=== PATIENT | male | born 1940 | race Caucasian/White ===

== ENCOUNTER 2018-07-11 15:02 | Inpatient (IN) | payer MEDICARE, OTHER ==
[2018-07-11] MEDS: Albuterol/Ipratropium 3.0-0.5 MG/3 ML Neb Soln NEB SCH ×2 (15:59→22:12)
[2018-07-11] MEDS ORDERED: Levofloxacin/Dextrose 5%-Water 750 MG in Premix Bag 1 BAG IV SCH (16:00)
[2018-07-11] MEDS: methylPREDNISolone Sodium Succinate 125 MG/2 ML SDV IVPUSH SCH ×2 (16:03→23:33)
[2018-07-11] MEDS: Sodium Chloride 0.9% 10 ML Syringe FLUSH PRN ×3 (16:05→23:34)
[2018-07-11] MEDS: Enoxaparin 40 MG/0.4 ML Syringe SUBCUT SCH (17:13)
[2018-07-11] MEDS: Insulin Lispro 100 Unit/ML 3 ML KwikPen SUBCUT SCH (19:36)
[2018-07-11] MEDS ORDERED: Insulin Lispro 100 Unit/ML 3 ML KwikPen SUBCUT SCH (22:00)
[2018-07-11] MEDS ORDERED: Insulin Lispro 100 Unit/ML 3 ML KwikPen SUBCUT ONE (22:18)
[2018-07-12] MEDS: Albuterol/Ipratropium 3.0-0.5 MG/3 ML Neb Soln NEB SCH ×5 (03:38→20:45)
[2018-07-12] MEDS: Acetaminophen 325 MG Tab PO PRN ×2 (03:44→18:47)
[2018-07-12] MEDS: methylPREDNISolone Sodium Succinate 125 MG/2 ML SDV IVPUSH SCH ×2 (09:03→16:30)
[2018-07-12] MEDS: Sodium Chloride 0.9% 10 ML Syringe FLUSH PRN ×4 (09:08→21:51)
[2018-07-12] MEDS: Insulin Lispro 100 Unit/ML 3 ML KwikPen SUBCUT SCH ×3 (09:09→18:49)
--- NOTE | 2018-07-12 09:40 | PCM.HP ---
H&P History of Present Illness - General Date of Service: 07/12/18 Admit Problem/Dx: Admission Diagnosis/Problem Admission Diagnosis/Problem Dyspnea Source of Information: Patient History Limitations: Reports: No Limitations - History of Present Illness Initial Comments - Free Text/Narative: Mr. Jama is an 78-year-old male that was admitted yesterday with persistent cough, wheezing and shortness of breath. He describes yellow sputum with coughing. The symptoms started insidiously 2 weeks ago, and he was seen as an outpatient;treated with azithromycin and prednisone with no relief. Mr. Jama has a history of type 2 diabetes, obesity, coronary disease and CKD that previously stable. He's baseline creatinine is about 1.8. He denied any chest pain. He endorsed leg swelling, that left worse than the right, along with orthopnea. - Related Data Allergies/Adverse Reactions: Allergies Allergy/AdvReac Type Severity Reaction Status Date / Time No Known Allergies Allergy Verified 07/11/18 15:29 Home Medications: Home Meds Albuterol Sulfate [Albuterol Sulfate Hfa] 8.5 gm IH PRN 07/11/18 [History] Ascorbic Acid 1 tab PO DAILY 07/11/18 [History] Aspirin [Ecotrin] 1 tab PO DAILY 07/11/18 [History] Azithromycin [Zithromax] 250 mg PO DAILY 07/11/18 [History] Furosemide [Lasix] 20 mg PO MOWEFR 07/11/18 [History] Insulin Detemir [Levemir] 85 unit SUBCUT BEDTIME 07/11/18 [History] Insulin Lispro [HumaLOG] 40 unit SQ ACDINNER 07/11/18 [History] Losartan/Hydrochlorothiazide [Hyzaar 50-12.5 Tablet] 12.5 - 50 mg PO DAILY 07/11 [History] Metoprolol Tartrate [Lopressor] 50 mg PO BID 07/11/18 [History] Multivitamins/Min/Ca/FA/Iron [Thera-M] 1 tab PO DAILY 07/11/18 [History] Cylinder-3 Fatty Acids/Fish Oil [Fish Oil 1,200 mg Softgel] 1,200 mg PO BID [History] Omeprazole 20 mg PO DAILY 07/11/18 [History] Rosuvastatin [Crestor] 20 mg PO DAILY 07/11/18 [History] predniSONE [Prednisone] 20 mg PO BID 07/11/18 [History] Insulin Lispro 25 unit SQ ACBREAKFAST 07/12/18 [History] Insulin Lispro 30 unit SQ ACLUNCH 07/12/18 [History] Past Medical History Cardiovascular History: Reports: Bypass Other Cardiovascular History: Cabg x4 Respiratory History: Reports: Bronchitis, Recurrent Gastrointestinal History: Reports: Diverticulosis Endocrine/Metabolic History: Reports: IDDM - Past Surgical History Cardiovascular Surgical History: Reports: Coronary Artery Bypass GI Surgical History: Reports: Cholecystectomy, Small Bowel Social & Family History - Family History Family Medical History: Noncontributory - Tobacco Use Smoking Status *Q: Former Smoker Used Tobacco, but Quit: Yes Month/Year Tobacco Last Used: 1969 - Caffeine Use Caffeine Use: Reports: Coffee - Alcohol Use Days Per Week of Alcohol Use: 0 - Recreational Drug Use Recreational Drug Use: No H&P Review of Systems - Review of Systems: Review Of Systems: ROS reveals no pertinent complaints other than HPI. Exam - Exam Exam: See Below - Vital Signs Vital Signs: Last Vital Signs Temp 97.8 F 07/12/18 04:00 Pulse 62 07/12/18 04:00 Resp 20 07/12/18 04:00 BP 152/68 H 07/12/18 04:00 Pulse Ox 97 07/12/18 04:00 Weight: 118.898 kg - Exam General: Moderate Distress HEENT: PERRLA, Hearing Intact, Mucosa Moist & [place], Nares Patent, Normal Nasal Septum, Posterior Pharynx Clear, Conjunctiva Clear, EOMI, EACs Clear, TMs Clear Neck: Supple, Trachea Midline, 2 Lungs: Decreased Breath Sounds, Crackles, Rales, Rhonchi, Wheezing Cardiovascular: Regular Rate, Regular Rhythm GI/Abdominal Exam: Normal Bowel Sounds, Soft, Non-Tender, No Organomegaly, No Distention, No Abnormal Bruit, No Mass, Pelvis Stable (Male) Exam: Deferred Rectal (Males) Exam: Deferred Back Exam: Normal Inspection, Full Range of Motion, NT Extremities: Pedal Edema Skin: Warm, Dry, Intact Neurological: Cranial Nerves Intact, Reflexes Equal Bilateral Neuro Extensive - Mental Status: Alert, Oriented x3, Normal Mood/Affect, Normal Cognition Neuro Extensive - Motor, Sensory, Reflexes: CN II-XII Intact, Normal Gait, Normal Reflexes Psychiatric: Alert, Normal Affect, Normal Mood - Patient Data Lab Results Last 24 hrs: Laboratory Results - last 24 hr 07/11/18 07/11/18 07/11/18 Range/Units 15:25 15:25 15:25 WBC 19.3 H (4.5-12.0) X10-3/uL RBC 4.39 (4.30-5.75) x10(6)uL Hgb 13.6 (13.5-17.8) g/dL Hct 40.8 (30.0-51.3) % MCV 92.9 (80-96) fL MCH 31.0 (27.7-33.6) pg MCHC 33.4 (32.2-35.4) g/dL RDW 12.2 (11.5-15.5) % Plt Count 329 (125-369) X10(3)uL MPV 8.6 (7.4-10.4) fL Add Manual Diff Yes Neutrophils % (Manual) 86 H (46-82) % Band Neutrophils % (0-6) % Lymphocytes % (Manual) 7 L (13-37) % Monocytes % (Manual) 7 (4-12) % Sodium (135-145) mmol/L Potassium (3.5-5.3) mmol/L Chloride (100-110) mmol/L Carbon Dioxide (21-32) mmol/L BUN (7-18) mg/dL Creatinine (0.70-1.30) mg/dL Est Cr Clr Drug Dosing Estimated GFR (MDRD) (>60) BUN/Creatinine Ratio (9-20) Glucose (80-116) mg/dL POC Glucose (80-116) mg/dL Lactic Acid 2.1 (0.4-2.2) mmol/L Calcium (8.6-10.2) mg/dL Total Bilirubin (0.1-1.3) mg/dL AST (5-25) IU/L ALT (12-36) U/L Alkaline Phosphatase (56-112) IU/L Troponin I (<0.017-0.056) ng/mL C-Reactive Protein 6.0 H* (0.5-0.9) mg/dL NT-Pro-B Natriuret Pep (<=450) pg/mL Total Protein (6.0-8.0) g/dL Albumin (3.2-4.6) g/dL Globulin g/dL Albumin/Globulin Ratio 07/11/18 07/11/18 07/11/18 Range/Units 15:25 15:25 21:44 WBC (4.5-12.0) X10-3/uL RBC (4.30-5.75) x10(6)uL Hgb (13.5-17.8) g/dL Hct (30.0-51.3) % MCV (80-96) fL MCH (27.7-33.6) pg MCHC (32.2-35.4) g/dL RDW (11.5-15.5) % Plt Count (125-369) X10(3)uL MPV (7.4-10.4) fL Add Manual Diff Neutrophils % (Manual) (46-82) % Band Neutrophils % (0-6) % Lymphocytes % (Manual) (13-37) % Monocytes % (Manual) (4-12) % Sodium 142 (135-145) mmol/L Potassium 4.0 (3.5-5.3) mmol/L Chloride 102 (100-110) mmol/L Carbon Dioxide 28 (21-32) mmol/L BUN 48 H (7-18) mg/dL Creatinine 2.0 H* (0.70-1.30) mg/dL Est Cr Clr Drug Dosing TNP Estimated GFR (MDRD) 32 L (>60) BUN/Creatinine Ratio 24.0 H (9-20) Glucose 57 L (80-116) mg/dL POC Glucose 373 H (80-116) mg/dL Lactic Acid (0.4-2.2) mmol/L Calcium 9.1 (8.6-10.2) mg/dL Total Bilirubin 0.3 (0.1-1.3) mg/dL AST 26 H (5-25) IU/L ALT 29 (12-36) U/L Alkaline Phosphatase 81 (56-112) IU/L Troponin I < 0.017 L (<0.017-0.056) ng/mL C-Reactive Protein (0.5-0.9) mg/dL NT-Pro-B Natriuret Pep 856 H (<=450) pg/mL Total Protein 7.0 (6.0-8.0) g/dL Albumin 2.9 L (3.2-4.6) g/dL Globulin 4.1 g/dL Albumin/Globulin Ratio 0.7 07/12/18 07/12/18 07/12/18 Range/Units 06:08 06:35 06:35 WBC 13.8 H (4.5-12.0) X10-3/uL RBC 3.91 L (4.30-5.75) x10(6)uL Hgb 12.2 L (13.5-17.8) g/dL Hct 36.1 (30.0-51.3) % MCV 92.4 (80-96) fL MCH 31.2 (27.7-33.6) pg MCHC 33.8 (32.2-35.4) g/dL RDW 12.2 (11.5-15.5) % Plt Count 252 (125-369) X10(3)uL MPV 8.7 (7.4-10.4) fL Add Manual Diff Yes Neutrophils % (Manual) 89 H (46-82) % Band Neutrophils % 1 (0-6) % Lymphocytes % (Manual) 6 L (13-37) % Monocytes % (Manual) 4 (4-12) % Sodium 136 (135-145) mmol/L Potassium 4.9 (3.5-5.3) mmol/L Chloride 98 L (100-110) mmol/L Carbon Dioxide 30 (21-32) mmol/L BUN 48 H (7-18) mg/dL Creatinine 2.1 H* (0.70-1.30) mg/dL Est Cr Clr Drug Dosing 27.14 Estimated GFR (MDRD) 31 L (>60) BUN/Creatinine Ratio 22.9 H (9-20) Glucose 362 H D (80-116) mg/dL POC Glucose 349 H (80-116) mg/dL Lactic Acid (0.4-2.2) mmol/L Calcium 8.9 (8.6-10.2) mg/dL Total Bilirubin 0.4 (0.1-1.3) mg/dL AST 27 H (5-25) IU/L ALT 29 (12-36) U/L Alkaline Phosphatase 78 (56-112) IU/L Troponin I (<0.017-0.056) ng/mL C-Reactive Protein (0.5-0.9) mg/dL NT-Pro-B Natriuret Pep (<=450) pg/mL Total Protein 6.6 (6.0-8.0) g/dL Albumin 2.7 L (3.2-4.6) g/dL Globulin 3.9 g/dL Albumin/Globulin Ratio 0.7 Result Diagrams: 07/12/18 06:35 07/12/18 06:35 EKG INTERPRETATION Rhythm: NSR - Problem List (1) CAP (community acquired pneumonia) SNOMED Code(s): 394169878 ICD Code: J18.9 - PNEUMONIA, UNSPECIFIED ORGANISM Status: Acute Current Visit: Yes Qualifiers: Laterality: unspecified laterality Qualified Code(s): J18.9 - Pneumonia, unspecified organism (2) Obesities, morbid SNOMED Code(s): 359812322 ICD Code: E66.01 - MORBID (SEVERE) OBESITY DUE TO EXCESS CALORIES Status: Chronic Current Visit: Yes (3) Type 2 diabetes mellitus SNOMED Code(s): 45487561 ICD Code: E11.9 - TYPE 2 DIABETES MELLITUS WITHOUT COMPLICATIONS Status: Chronic Current Visit: Yes Qualifiers: Diabetes mellitus terminal clerk insulin use: with care home use (4) HTN (hypertension) SNOMED Code(s): 48854354 ICD Code: I10 - ESSENTIAL (PRIMARY) HYPERTENSION Status: Chronic Current Visit: Yes Qualifiers: Hypertension type: essential hypertension Qualified Code(s): I10 - Essential (primary) hypertension (5) HLD (hyperlipidemia) SNOMED Code(s): 13154484 ICD Code: E78.5 - HYPERLIPIDEMIA, UNSPECIFIED Status: Chronic Current Visit: Yes (6) CAD (coronary artery disease) SNOMED Code(s): 51197505 ICD Code: I25.10 - ATHSCL HEART DISEASE OF [place] CORONARY ARTERY W/O ANG PCTRS Status: Chronic Current Visit: Yes Qualifiers: [place] vs. transplanted heart: [place] heart (7) CKD (chronic kidney disease) SNOMED Code(s): 194897937 ICD Code: N18.9 - CHRONIC KIDNEY DISEASE, UNSPECIFIED Status: Acute Current Visit: Yes Qualifiers: Chronic kidney disease stage: stage 3 (moderate) Qualified Code(s): N18.3 - Chronic kidney disease, stage 3 (moderate) Problem List Initiated/Reviewed/Updated: Yes Orders Last 24hrs: Active Orders 24 hr Category Date Time Status Patient Status [ADT] Routine ADT 07/11/18 15:03 Active Blood Glucose Check, Bedside [RC] 07,11,17 Care 07/11/18 15:03 Active Blood Glucose Check, Bedside [RC] ONETIME Care 07/11/18 21:00 Active Height and Weight [RC] 06 Care 07/11/18 15:03 Active Intake and Output [RC] 06,14,22 Care 07/11/18 15:04 Active Oxygen Therapy [RC] PRN Care 07/11/18 15:03 Active RT Aerosol Therapy [RC] ASDIRECTED Care 07/11/18 15:04 Active Up With Assistance [RC] ASDIRECTED Care 07/11/18 15:03 Active VTE/DVT Education [RC] Per Unit Routine Care 07/11/18 15:03 Active Vital Signs [RC] 08,12,16,20,00,04 Care 07/11/18 15:03 Active Chest wo Cont [CT] Routine Exams 07/11/18 15:03 Taken CULTURE BLOOD [BC] Urgent Lab 07/11/18 15:25 Received CULTURE BLOOD [BC] Urgent Lab 07/11/18 15:35 Received CULTURE SPUTUM + SMEAR [RM] Routine Lab 07/11/18 19:51 Ordered Acetaminophen [Tylenol] Med 07/11/18 15:03 Active 650 mg PO Q4H PRN Albuterol/Ipratropium [DuoNeb 3.0-0.5 MG/3 ML] Med 07/11/18 16:00 Active 3 ml NEB QIDRT Enoxaparin [Lovenox] Med 07/11/18 16:30 Active 40 mg SUBCUT Q24H Insulin Lispro [HumaLOG] Med 07/11/18 22:00 Active 7 unit SUBCUT STAT Insulin Lispro [HumaLOG] Med 07/11/18 18:00 Active See Protocol SUBCUT TIDMEALS Levofloxacin/Dextrose 5%-Water [Levaquin in D5W 750 MG/ Med 07/13/18 16:30 Active 150 ML] 150 ml IV Q48H Sodium Chloride 0.9% [Saline Flush] Med 07/11/18 15:03 Active 10 ml FLUSH ASDIRECTED PRN methylPREDNISolone Sod Succ [Solu-MEDROL] Med 07/11/18 16:00 Active 125 mg IVPUSH Q8H Blood Culture x2 Reflex Set [OM.PC] Urgent Oth 07/11/18 15:03 Ordered Peripheral IV Insertion Adult [OM.PC] Routine Oth 07/11/18 15:03 Ordered Resuscitation Status Routine Resus Stat 07/11/18 15:03 Ordered EKG 12 Lead [EK] Stat Ther 07/11/18 15:03 Ordered Medication Orders Acetaminophen (Tylenol) 650 mg PO Q4H PRN PRN Reason: Pain (Mild 1-3)/fever Last Admin: 07/12/18 03:44 Dose: 650 mg Albuterol/Ipratropium (Duoneb 3.0-0.5 Mg/3 Ml) 3 ml NEB QIDRT [facility] Last Admin: 07/12/18 08:59 Dose: Admin: 07/12/18 03:38 Dose: 3 ml Admin: 07/11/18 22:12 Dose: 3 ml Admin: 07/11/18 15:59 Dose: 3 ml Enoxaparin Sodium (Lovenox) 40 mg SUBCUT Q24H [facility] Last Admin: 07/11/18 17:13 Dose: 40 mg Levofloxacin/Dextrose (Levaquin In D5w 750 Mg/150 Ml) 150 mls @ 100 mls/hr IV Q48H [facility] Insulin Human Lispro (Humalog) 0 unit SUBCUT TIDMEALS [facility]; Protocol Last Admin: 07/12/18 09:09 Dose: 8 units Admin: 07/11/18 19:36 Dose: Not Given Insulin Human Lispro (Humalog) 7 unit SUBCUT STAT [facility] Last Admin: 07/11/18 22:33 Dose: 7 units Methylprednisolone Sodium Succinate (Solu-Medrol) 125 mg IVPUSH Q8H [facility] Last Admin: 07/12/18 09:03 Dose: 125 mg Admin: 07/11/18 23:33 Dose: 125 mg Admin: 07/11/18 16:03 Dose: 125 mg Sodium Chloride (Saline Flush) 10 ml FLUSH ASDIRECTED PRN PRN Reason: Keep Vein Open Last Admin: 07/12/18 09:08 Dose: 10 ml Admin: 07/11/18 23:34 Dose: 10 ml Admin: 07/11/18 18:35 Dose: 10 ml Admin: 07/11/18 16:05 Dose: 10 ml Assessment/Plan Comment:: He CT scan done without contrast showed bilateral pneumonia. I was unable to give contrast to rule out PE. He does have mild edema and BNP is about 800. I will continue with Levaquin 750 mg every 48 hours, Solu-Medrol, and a tight glycemic control. Supplement O2 prn.Also decided to give him Lasix twice a day for diuresis.
[2018-07-12] MEDS: Furosemide 20 MG/2 ML VIAL IVPUSH SCH ×2 (10:25→20:45)
[2018-07-12] MEDS: Enoxaparin 40 MG/0.4 ML Syringe SUBCUT SCH (16:30)
[2018-07-12] MEDS ORDERED: Insulin Lispro 100 Unit/ML 3 ML KwikPen SUBCUT SCH (18:02)
[2018-07-12] MEDS ORDERED: Insulin Regular, Human 100 Units/ML 3 ML Vial IV STA ×2 (18:26→21:30)
[2018-07-12] MEDS: Metoprolol Tartrate 50 MG Tab PO SCH (20:45)
[2018-07-12] MEDS ORDERED: INSULIN DETEMIR 85 UNIT SUBCUT SCH (21:00)
[2018-07-12] MEDS: Fish Oil/Omega-3 Fatty Acids 1 Gm Cap PO SCH ×2 (21:26→21:48)
[2018-07-13] MEDS: methylPREDNISolone Sodium Succinate 125 MG/2 ML SDV IVPUSH SCH ×2 (00:19→12:23)
[2018-07-13] MEDS: Sodium Chloride 0.9% 10 ML Syringe FLUSH PRN ×7 (00:19→20:33)
[2018-07-13] MEDS ORDERED: Insulin Lispro 100 Unit/ML 3 ML KwikPen SUBCUT STA (00:44)
[2018-07-13] MEDS: Albuterol/Ipratropium 3.0-0.5 MG/3 ML Neb Soln NEB SCH ×4 (06:24→20:29)
[2018-07-13] MEDS: Pantoprazole 40 MG Tab.CR PO SCH (06:30)
[2018-07-13] MEDS: Insulin Lispro 100 Unit/ML 3 ML KwikPen SUBCUT SCH ×3 (07:32→18:41)
[2018-07-13] MEDS ORDERED: Piperacillin/Tazobactam 2.25 GM in Sodium Chloride 0.9% 50 ML IV SCH (09:00)
[2018-07-13] MEDS ORDERED: Vancomycin 1 GM SDV ONE (09:44)
[2018-07-13] MEDS: Saccharomyces Boulardii (Probiotic) 250 MG Cap PO SCH ×2 (10:03→20:29)
[2018-07-13] MEDS: Furosemide 20 MG/2 ML VIAL IVPUSH SCH ×2 (10:04→20:29)
[2018-07-13] MEDS: Aspirin 81 MG Tab.EC PO SCH (10:04)
[2018-07-13] MEDS: predniSONE 20 MG Tab PO SCH ×2 (10:04→20:29)
[2018-07-13] MEDS: Metoprolol Tartrate 50 MG Tab PO SCH ×2 (10:04→20:29)
[2018-07-13] MEDS: Fish Oil/Omega-3 Fatty Acids 1 Gm Cap PO SCH ×2 (10:14→20:29)
[2018-07-13] MEDS: Multivitamins,Therapeutic Tab PO SCH (10:14)
[2018-07-13] MEDS: Rosuvastatin 20 MG Tab PO SCH (10:14)
[2018-07-13] MEDS: Piperacillin/Tazobactam 2.25 GM in Sodium Chloride 0.9% 50 ML IV SCH ×3 (10:39→21:50)
[2018-07-13] MEDS ORDERED: Insulin Lispro 100 Unit/ML 3 ML KwikPen SUBCUT SCH ×2 (11:30→18:45)
[2018-07-13] MEDS ORDERED: Vancomycin 2 GM in Sodium Chloride 0.9% 500 ML IV SCH (12:00)
[2018-07-13] MEDS ORDERED: Levofloxacin/Dextrose 5%-Water 150 ML IV SCH (16:30)
[2018-07-13] MEDS: Enoxaparin 40 MG/0.4 ML Syringe SUBCUT SCH (16:42)
--- NOTE | 2018-07-13 19:23 | PCM.PN ---
- General Info Date of Service: 07/13/18 Admission Dx/Problem (Free Text): He is steadily improving.Slept better. Still wheezing. Has diuresed 1 lb since yesterday.One bottle of blood cultures has grown Gram Positive Cocci - Review of Systems General: Denies: Fever HEENT: Reports: No Symptoms Pulmonary: Reports: Cough Cardiovascular: Reports: No Symptoms Gastrointestinal: Reports: No Symptoms Genitourinary: Reports: No Symptoms Musculoskeletal: Reports: No Symptoms Neurological: Reports: No Symptoms - Patient Data Vitals - Most Recent: Last Vital Signs Temp 97.6 F 07/13/18 16:00 Pulse 75 07/13/18 16:00 Resp 20 07/13/18 16:00 BP 129/67 07/13/18 16:00 Pulse Ox 94 L 07/13/18 16:00 Weight - Most Recent: 118.433 kg I&O - Last 24 Hours: Intake & Output 07/13/18 07/13/18 07/13/18 06:59 14:59 22:59 Intake Total 50 Output Total 550 1050 Balance -550 -1000 Lab Results Last 24 Hours: Laboratory Results - last 24 hr 07/12/18 07/12/18 07/12/18 Range/Units 20:40 21:15 21:15 WBC (4.5-12.0) X10-3/uL RBC (4.30-5.75) x10(6)uL Hgb (13.5-17.8) g/dL Hct (30.0-51.3) % MCV (80-96) fL MCH (27.7-33.6) pg MCHC (32.2-35.4) g/dL RDW (11.5-15.5) % Plt Count (125-369) X10(3)uL MPV (7.4-10.4) fL Add Manual Diff Neutrophils % (Manual) (46-82) % Band Neutrophils % (0-6) % Lymphocytes % (Manual) (13-37) % Monocytes % (Manual) (4-12) % Sodium (135-145) mmol/L Potassium (3.5-5.3) mmol/L Chloride (100-110) mmol/L Carbon Dioxide (21-32) mmol/L BUN (7-18) mg/dL Creatinine (0.70-1.30) mg/dL Est Cr Clr Drug Dosing mL/min Estimated GFR (MDRD) (>60) BUN/Creatinine Ratio (9-20) Glucose 494 H* D (80-116) mg/dL POC Glucose > 500 H* (80-116) mg/dL Calcium (8.6-10.2) mg/dL Magnesium 2.3 (1.8-2.5) mg/dL 07/13/18 07/13/18 07/13/18 Range/Units 00:09 04:05 06:10 WBC 17.1 H (4.5-12.0) X10-3/uL RBC 4.06 L (4.30-5.75) x10(6)uL Hgb 12.4 L (13.5-17.8) g/dL Hct 37.6 (30.0-51.3) % MCV 92.5 (80-96) fL MCH 30.6 (27.7-33.6) pg MCHC 33.1 (32.2-35.4) g/dL RDW 11.9 (11.5-15.5) % Plt Count 300 (125-369) X10(3)uL MPV 8.1 (7.4-10.4) fL Add Manual Diff Yes Neutrophils % (Manual) 94 H (46-82) % Band Neutrophils % 1 (0-6) % Lymphocytes % (Manual) 2 L (13-37) % Monocytes % (Manual) 3 L (4-12) % Sodium (135-145) mmol/L Potassium (3.5-5.3) mmol/L Chloride (100-110) mmol/L Carbon Dioxide (21-32) mmol/L BUN (7-18) mg/dL Creatinine (0.70-1.30) mg/dL Est Cr Clr Drug Dosing mL/min Estimated GFR (MDRD) (>60) BUN/Creatinine Ratio (9-20) Glucose (80-116) mg/dL POC Glucose 375 H D 251 H D (80-116) mg/dL Calcium (8.6-10.2) mg/dL Magnesium (1.8-2.5) mg/dL 07/13/18 07/13/18 07/13/18 Range/Units 06:10 11:32 11:40 WBC (4.5-12.0) X10-3/uL RBC (4.30-5.75) x10(6)uL Hgb (13.5-17.8) g/dL Hct (30.0-51.3) % MCV (80-96) fL MCH (27.7-33.6) pg MCHC (32.2-35.4) g/dL RDW (11.5-15.5) % Plt Count (125-369) X10(3)uL MPV (7.4-10.4) fL Add Manual Diff Neutrophils % (Manual) (46-82) % Band Neutrophils % (0-6) % Lymphocytes % (Manual) (13-37) % Monocytes % (Manual) (4-12) % Sodium 135 (135-145) mmol/L Potassium 5.1 (3.5-5.3) mmol/L Chloride 99 L D (100-110) mmol/L Carbon Dioxide 30 (21-32) mmol/L BUN 57 H (7-18) mg/dL Creatinine 2.0 H* (0.70-1.30) mg/dL Est Cr Clr Drug Dosing 28.50 mL/min Estimated GFR (MDRD) 32 L (>60) BUN/Creatinine Ratio 28.5 H (9-20) Glucose 301 H D 418 H* D (80-116) mg/dL POC Glucose 424 H* D (80-116) mg/dL Calcium 9.0 (8.6-10.2) mg/dL Magnesium (1.8-2.5) mg/dL Steven Results Last 24 Hours: Microbiology 07/11/18 15:35 Aerobic Blood Culture - Preliminary Blood - Venous - Lab Draw Gram Positive Cocci Anaerobic Blood Culture - Preliminary NO GROWTH AFTER 2 DAYS 07/11/18 19:51 Gram Stain - Final Sputum - Expectorated Sputum Culture - Preliminary Normal Pepper 07/11/18 15:25 Aerobic Blood Culture - Preliminary Blood - Venous NO GROWTH AFTER 2 DAYS Anaerobic Blood Culture - Preliminary NO GROWTH AFTER 2 DAYS Med Orders - Current: Current Medications Acetaminophen (Tylenol) 650 mg PO Q4H PRN PRN Reason: Pain (Mild 1-3)/fever Last Admin: 07/12/18 18:47 Dose: 650 mg Albuterol/Ipratropium (Duoneb 3.0-0.5 Mg/3 Ml) 3 ml NEB QIDRT [facility] Last Admin: 07/13/18 16:41 Dose: 3 ml Aspirin (Halfprin) 81 mg PO DAILY [facility] Last Admin: 07/13/18 10:04 Dose: 81 mg Enoxaparin Sodium (Lovenox) 40 mg SUBCUT Q24H [facility] Last Admin: 07/13/18 16:42 Dose: 40 mg Fish Oil (Fish Oil) 1 gm PO BID [facility] Last Admin: 07/13/18 10:14 Dose: 1 gm Furosemide (Lasix) 20 mg IVPUSH BID [facility] Last Admin: 07/13/18 10:04 Dose: 20 mg Levofloxacin/Dextrose (Levaquin In D5w 750 Mg/150 Ml) 150 mls @ 100 mls/hr IV Q48H [facility] Last Admin: 07/13/18 17:16 Dose: 100 mls/hr Piperacillin Sod/Tazobactam (Sod 2.25 gm/ Sodium Chloride) 50 mls @ 100 mls/hr IV Q6H [facility] Last Admin: 07/13/18 16:36 Dose: 100 mls/hr Vancomycin HCl 2 gm/ Sodium (Chloride) 500 mls @ 334.014 mls/hr IV Q36H [facility] Last Admin: 07/13/18 12:08 Dose: 334.014 mls/hr Insulin Human Lispro (Humalog) 0 unit SUBCUT TIDMEALS [facility]; Protocol Last Admin: 07/13/18 18:41 Dose: 10 units Insulin Human Lispro (Humalog) 7 unit SUBCUT STAT [facility] Last Admin: 07/11/18 22:33 Dose: 7 units Insulin Human Lispro (Humalog) 25 unit SUBCUT ACBREAKFAST [facility] Insulin Human Lispro (Humalog) 30 unit SUBCUT ACLUNCH [facility] Last Admin: 07/13/18 12:06 Dose: 30 units Insulin Human Lispro (Humalog) 40 unit SUBCUT ACDINNER [facility] Metoprolol Tartrate (Lopressor) 50 mg PO BID [facility] Last Admin: 07/13/18 10:04 Dose: 50 mg Multivitamins (Thera) 1 each PO DAILY [facility] Last Admin: 07/13/18 10:14 Dose: 1 each Non-Formulary Medication (Insulin Detemir [Levemir]) 85 unit SUBCUT BEDTIME [facility] Last Admin: 07/12/18 21:47 Dose: Not Given Pantoprazole Sodium (Protonix) 40 mg PO ACBREAKFAST [facility] Last Admin: 07/13/18 06:30 Dose: 40 mg Prednisone (Prednisone) 20 mg PO BID [facility] Last Admin: 07/13/18 10:04 Dose: 20 mg Rosuvastatin Calcium (Crestor) 20 mg PO DAILY [facility] Last Admin: 07/13/18 10:14 Dose: 20 mg Saccharomyces Boulardii (Florastor) 250 mg PO BID [facility] Last Admin: 07/13/18 10:03 Dose: 250 mg Sodium Chloride (Saline Flush) 10 ml FLUSH ASDIRECTED PRN PRN Reason: Keep Vein Open Last Admin: 07/13/18 10:09 Dose: 10 ml Discontinued Medications Levofloxacin/Dextrose 750 mg/ (Premix) 150 mls @ 100 mls/hr IV Q24H [facility] Stop: 07/11/18 19:00 Last Admin: 07/11/18 17:06 Dose: 100 mls/hr Piperacillin Sod/Tazobactam (Sod 2.25 gm/ Sodium Chloride) 50 mls @ 100 mls/hr IV Q6H [facility] Last Admin: 07/13/18 12:23 Dose: Not Given Vancomycin HCl 1 gm/ Sodium (Chloride) 250 mls @ 167 mls/hr IV Q24H [facility] Last Admin: 07/13/18 12:23 Dose: Not Given Insulin Human Lispro (Humalog) Confirm Administered Dose 300 unit SUBCUT .STK- MED ONE Stop: 07/11/18 22:19 Last Admin: 07/11/18 23:20 Dose: Not Given Insulin Human Lispro (Humalog) 40 unit SUBCUT STAT [facility] Last Admin: 07/12/18 18:29 Dose: 40 units Insulin Human Lispro (Humalog) 10 unit SUBCUT STAT STA Stop: 07/13/18 00:45 Last Admin: 07/13/18 00:30 Dose: 10 units Insulin Human Lispro (Humalog) 40 unit SUBCUT DAILY@1730 [facility] Stop: 07/13/18 18:46 Last Admin: 07/13/18 18:40 Dose: 40 units Insulin Human Regular (Humulin R) 10 unit IV ONETIME STA Stop: 07/12/18 18:27 Last Admin: 07/12/18 18:41 Dose: 10 units Insulin Human Regular (Humulin R) 10 unit IV ONETIME STA Stop: 07/12/18 21:31 Last Admin: 07/12/18 21:48 Dose: 10 units Methylprednisolone Sodium Succinate (Solu-Medrol) 125 mg IVPUSH Q8H [facility] Last Admin: 07/13/18 12:23 Dose: Not Given Vancomycin HCl (Vancomycin) Confirm Administered Dose 1 gm .ROUTE .STK-MED ONE Stop: 07/13/18 09:45 Last Admin: 07/13/18 10:40 Dose: Not Given - Exam General: Alert, Cooperative, Other Neck: No JVD Lungs: Normal Respiratory Effort, Rales, Wheezing Cardiovascular: Regular Rhythm GI/Abdominal Exam: Non-Tender (Male) Exam: Deferred Back Exam: Normal Inspection Extremities: Normal Inspection - Problem List & Annotations (1) CAP (community acquired pneumonia) SNOMED Code(s): 336782930 Code(s): J18.9 - PNEUMONIA, UNSPECIFIED ORGANISM Status: Acute Current Visit: Yes Qualifiers: Laterality: unspecified laterality Qualified Code(s): J18.9 - Pneumonia, unspecified organism (2) Obesities, morbid SNOMED Code(s): 990032497 Code(s): E66.01 - MORBID (SEVERE) OBESITY DUE TO EXCESS CALORIES Status: Chronic Current Visit: Yes (3) Type 2 diabetes mellitus SNOMED Code(s): 97045322 Code(s): E11.9 - TYPE 2 DIABETES MELLITUS WITHOUT COMPLICATIONS Status: Chronic Current Visit: Yes Qualifiers: Diabetes mellitus forest manager insulin use: with alf use (4) HTN (hypertension) SNOMED Code(s): 23091649 Code(s): I10 - ESSENTIAL (PRIMARY) HYPERTENSION Status: Chronic Current Visit: Yes Qualifiers: Hypertension type: essential hypertension Qualified Code(s): I10 - Essential (primary) hypertension (5) HLD (hyperlipidemia) SNOMED Code(s): 43230894 Code(s): E78.5 - HYPERLIPIDEMIA, UNSPECIFIED Status: Chronic Current Visit: Yes (6) CAD (coronary artery disease) SNOMED Code(s): 77901770 Code(s): I25.10 - ATHSCL HEART DISEASE OF [place] CORONARY ARTERY W/O ANG PCTRS Status: Chronic Current Visit: Yes Qualifiers: [place] vs. transplanted heart: [place] heart (7) CKD (chronic kidney disease) SNOMED Code(s): 903446595 Code(s): N18.9 - CHRONIC KIDNEY DISEASE, UNSPECIFIED Status: Acute Current Visit: Yes Qualifiers: Chronic kidney disease stage: stage 3 (moderate) Qualified Code(s): N18.3 - Chronic kidney disease, stage 3 (moderate) (8) Bacteremia SNOMED Code(s): 2620962 Code(s): R78.81 - BACTEREMIA Status: Acute Current Visit: Yes - Problem List Review Problem List Initiated/Reviewed/Updated: Yes - My Orders Last 24 Hours: My Active Orders 07/12/18 21:00 Fish Oil/[place]-3 Fatty Acids [Fish Oil] 1 gm PO BID Insulin Detemir [Levemir] 85 unit SUBCUT BEDTIME Metoprolol Tartrate [Lopressor] 50 mg PO BID 07/13/18 07:30 Pantoprazole [ProTONIX] 40 mg PO ACBREAKFAST 07/13/18 09:00 Aspirin [Halfprin] 81 mg PO DAILY Multivitamins,Therapeutic [Thera] 1 each PO DAILY Rosuvastatin [Crestor] 20 mg PO DAILY Saccharomyces Boulardii [Florastor] 250 mg PO BID predniSONE 20 mg PO BID 07/13/18 10:30 Piperacillin/Tazobactam [Zosyn] 2.25 gm Sodium Chloride 0.9% [Normal Saline] 50 ml IV Q6H 07/13/18 11:30 Insulin Lispro [HumaLOG] 30 unit SUBCUT ACLUNCH 07/13/18 12:00 Vancomycin 2 gm Sodium Chloride 0.9% [Normal Saline] 500 ml IV Q36H 07/13/18 16:30 Levofloxacin/Dextrose 5%-Water [Levaquin in D5W 750 MG/150 ML] 150 ml IV Q48H 07/14/18 05:11 BASIC METABOLIC PANEL,BMP [CHEM] AM CBC WITH AUTO DIFF [HEME] AM 07/14/18 07:30 Insulin Lispro [HumaLOG] 25 unit SUBCUT ACBREAKFAST 07/14/18 17:30 Insulin Lispro [HumaLOG] 40 unit SUBCUT ACDINNER - Plan Plan:: His blood cultures have grown some positive cocci. Blood sugars running in the 4 -500 range. My plan is to vancomycin and Zosyn. Renal appropriate doses. I've also discontinued IV Solu-Medrol for oral prednisone. We'll restart his home insulin dose along; with our medium scale. Repeat labs the morning;await final culture and sensitivity results.
[2018-07-13] MEDS: Insulin Glargine,Human Rec. Analog 100 Units/ML 3 ML Pen SUBCUT SCH (21:50)
[2018-07-14] MEDS: Piperacillin/Tazobactam 2.25 GM in Sodium Chloride 0.9% 50 ML IV SCH ×3 (03:42→17:05)
[2018-07-14] MEDS: Sodium Chloride 0.9% 10 ML Syringe FLUSH PRN ×2 (03:43→10:43)
[2018-07-14] MEDS: Albuterol/Ipratropium 3.0-0.5 MG/3 ML Neb Soln NEB SCH ×4 (06:24→20:50)
[2018-07-14] MEDS ORDERED: Insulin Lispro 100 Unit/ML 3 ML KwikPen SUBCUT SCH (07:30)
[2018-07-14] MEDS ORDERED: Piperacillin/Tazobactam 2.25 GM in Sodium Chloride 0.9% 50 ML IV SCH (08:00)
[2018-07-14] MEDS: Insulin Lispro 100 Unit/ML 3 ML KwikPen SUBCUT SCH ×5 (08:06→18:27)
[2018-07-14] MEDS: predniSONE 20 MG Tab PO SCH ×2 (08:34→20:52)
[2018-07-14] MEDS: Saccharomyces Boulardii (Probiotic) 250 MG Cap PO SCH ×2 (08:34→20:51)
[2018-07-14] MEDS: Aspirin 81 MG Tab.EC PO SCH (08:34)
[2018-07-14] MEDS: Pantoprazole 40 MG Tab.CR PO SCH (08:34)
[2018-07-14] MEDS: Furosemide 20 MG/2 ML VIAL IVPUSH SCH ×2 (08:34→14:30)
[2018-07-14] MEDS: Metoprolol Tartrate 50 MG Tab PO SCH ×2 (08:43→20:52)
[2018-07-14] MEDS: Multivitamins,Therapeutic Tab PO SCH (08:46)
[2018-07-14] MEDS: Rosuvastatin 20 MG Tab PO SCH (08:46)
[2018-07-14] MEDS: Fish Oil/Omega-3 Fatty Acids 1 Gm Cap PO SCH ×2 (08:47→20:51)
--- NOTE | 2018-07-14 09:37 | CT ---
INDICATION: Short of breath. CT CHEST WITHOUT CONTRAST: Spiral 3.75 mm axial sections were obtained through the chest with sagittal and coronal reconstructions, 07/11/18 - no comparisons were available. Total exam DLP = 840.46 mGy-cm. The heart did not appear enlarged; however, fairly extensive coronary artery calcifications are noted. No pericardial effusion was seen. No mediastinal masses were identified. Mediastinal lymphadenopathy is mild and nonspecific. Calcifications are noted in the brachiocephalic arteries and arch of the aorta. An active infiltrate or effusion was not identified on the left. There is some linear density at the lingula, most likely fibrotic in nature. However, on the right, there is patchy infiltrate in the middle lobe medially, compatible with pneumonia and very fine infilrate also seen more superiorly and laterally in the right upper lobe, as well as more cranially and anteromedially in the right upper lobe. These areas of infiltrate likely represent pneumonia and should be correlated clinically. No definite pleuritis was seen. The upper abdomen showed evidence of arterial calcifications and renal cortical scarring. IMPRESSION: 1. Pneumonia in the right upper lobe and middle lobe especially is likely - correlate clinically. 2. ASHD. 3. ASD. Report was called to Dr. Garcia at approximately 1715 hours on 07/11/18. [facility]
[2018-07-14] MEDS ORDERED: Sodium Chloride 0.9% 250 ML IV SCH (10:30)
--- NOTE | 2018-07-14 12:29 | PN ---
DATE SEEN: 07/14/2018 SUBJECTIVE: Venita Jama is an 78-year-old male, admitted with complicated pneumonia. Hypoxic, fever, chills, complicated sputum, and CT evidence of a right upper lobe and right middle lobe pneumonia. Clinically much better. Cough subsiding. Oxygen levels have improved to 91% on room air. Blood culture: Positive for gram-positive cocci, exact bug to be identified later today. He is on three drug therapy; Levaquin, piperacillin, vancomycin, and prednisone. GFR of 29 and 32 respectively. White count 17,000 and 18,000 respectively, hemoglobin stable at 12.4. LABORATORY STUDIES: On 07/14/2018, white count 18,100, hemoglobin 12.2, and 89% neutrophils, down from 94%. Creatinine 2.2. GFR 29. Glucose is now down to 200. Sugars have been markedly high. PHYSICAL EXAMINATION: VITAL SIGNS: 144/74, mean blood pressure 100, 91 is the pulse, 37.1 degrees Fahrenheit, and O2 saturation 91%. GENERAL: Appears comfortable. On room air. NECK: Benign. Thyroid small. CHEST: Decreased breath sounds in the right mid lung field. HEART: Occasional ectopy. Soft murmur. ABDOMEN: Benign. ASSESSMENT: Community-acquired pneumonia. PLAN: Discontinue the vancomycin. We will await sensitivities later today. We will continue Levaquin and piperacillin. Complementary care and well being. /[id number] ROCIO/MELECIO
[2018-07-14] MEDS: Enoxaparin 40 MG/0.4 ML Syringe SUBCUT SCH (17:01)
[2018-07-14] MEDS: Insulin Glargine,Human Rec. Analog 100 Units/ML 3 ML Pen SUBCUT SCH (20:53)
[2018-07-15] MEDS: Albuterol/Ipratropium 3.0-0.5 MG/3 ML Neb Soln NEB SCH ×4 (06:38→20:52)
[2018-07-15] MEDS: Pantoprazole 40 MG Tab.CR PO SCH (06:38)
[2018-07-15] MEDS: Insulin Lispro 100 Unit/ML 3 ML KwikPen SUBCUT SCH ×6 (06:41→18:10)
[2018-07-15] MEDS: Furosemide 20 MG/2 ML VIAL IVPUSH SCH ×2 (08:04→15:22)
[2018-07-15] MEDS: Rosuvastatin 20 MG Tab PO SCH (08:11)
[2018-07-15] MEDS: Metoprolol Tartrate 50 MG Tab PO SCH ×2 (08:11→21:09)
[2018-07-15] MEDS: Fish Oil/Omega-3 Fatty Acids 1 Gm Cap PO SCH ×2 (08:11→21:06)
[2018-07-15] MEDS: Aspirin 81 MG Tab.EC PO SCH (08:11)
[2018-07-15] MEDS: Saccharomyces Boulardii (Probiotic) 250 MG Cap PO SCH ×2 (08:11→21:06)
[2018-07-15] MEDS: Multivitamins,Therapeutic Tab PO SCH (08:12)
[2018-07-15] MEDS: predniSONE 20 MG Tab PO SCH ×2 (08:12→21:06)
[2018-07-15] MEDS: Levofloxacin 250 MG Tab PO SCH (11:17)
--- NOTE | 2018-07-15 11:59 | PN ---
DATE SEEN: 07/15/2018 SUBJECTIVE: Venita Jama is an 78-year-old male, admitted with complicated pneumonia. Response has been satisfactory. CT chest done on 07/11/2018 had revealed right upper lobe and middle lobe pneumonia. Repeat x-rays, chest x-ray, should be performed today. Microbiology grew bug Staphylococcus hominis, sensitive to all antibiotics, except for ampicillin and penicillin. All other meds under observation will be successful. Feeling better. Up ambulating and in no need of oxygen. LABORATORY STUDIES: Blood sugars improving, 201. OBJECTIVE: VITAL SIGNS: 117 kg, 37.2, pulse is 74, 151/74, 16, 92%. GENERAL: In good spirits. Speech is fluent. HEENT: Mouth and oropharynx clear. Good hydration. NECK: Benign. No adenopathy. No JVD. CHEST: Decreased breath sounds in the right lung field. HEART: No ectopy or murmur significant. ABDOMEN: Benign. IMPRESSION: Resolving pneumonia. PLAN: We will switch from IV to oral antibiotics, Levaquin 250, one daily. Radiographs will be performed. Plan discharge tomorrow, 07/16/2018. /[id number] ROCIO/MELECIO
[2018-07-15] MEDS: Enoxaparin 40 MG/0.4 ML Syringe SUBCUT SCH (16:25)
[2018-07-15] MEDS ORDERED: Insulin Glargine,Human Rec. Analog 100 Units/ML 3 ML Pen ONE (21:18)
[2018-07-15] MEDS: Insulin Glargine,Human Rec. Analog 100 Units/ML 3 ML Pen SUBCUT SCH (21:20)
[2018-07-16] MEDS: Albuterol/Ipratropium 3.0-0.5 MG/3 ML Neb Soln NEB SCH (06:26)
[2018-07-16] MEDS: Pantoprazole 40 MG Tab.CR PO SCH (06:29)
[2018-07-16] MEDS: Insulin Lispro 100 Unit/ML 3 ML KwikPen SUBCUT SCH ×2 (07:34→08:20)
[2018-07-16] MEDS ORDERED: Furosemide 20 MG Tab PO SCH (08:00)
[2018-07-16] MEDS: Aspirin 81 MG Tab.EC PO SCH (08:23)
[2018-07-16] MEDS: Saccharomyces Boulardii (Probiotic) 250 MG Cap PO SCH (08:23)
[2018-07-16] MEDS: Rosuvastatin 20 MG Tab PO SCH (08:23)
[2018-07-16] MEDS: Fish Oil/Omega-3 Fatty Acids 1 Gm Cap PO SCH (08:23)
[2018-07-16] MEDS: predniSONE 20 MG Tab PO SCH (08:24)
[2018-07-16] MEDS: Multivitamins,Therapeutic Tab PO SCH (08:24)
[2018-07-16] MEDS: Metoprolol Tartrate 50 MG Tab PO SCH (08:24)
--- NOTE | 2018-07-16 08:37 | CR ---
INDICATION: Followup right-sided pneumonia. CHEST: A PA view and two lateral views of the chest were obtained 07/15/18 - no comparisons. The heart was not grossly enlarged, and it was grossly normal in shape. The mediastinum is post median sternotomy. The aorta is tortuous with calcification in the arch and descending portion. Bony structures appear to be grossly intact. A definite active infiltrate or effusion was not identified. Findings suggesting COPD are noted. IMPRESSION: No definite acute process - somewhat heavy markings in the lower lung nguyễn may be on the basis of pulmonary fibrosis but make it difficult to exclude minimal patchy bronchopneumonia. MTDD
[2018-07-16] MEDS: Levofloxacin 250 MG Tab PO SCH (09:57)
--- NOTE | 2018-07-17 11:34 | DISCH ---
DISCHARGE DATE: 07/16/2018 DISCHARGE DIAGNOSIS: Right upper-lower community-acquired Staph hominis pneumonia. SECONDARY DIAGNOSES: 1. Insulin-dependent type 2 diabetes mellitus. 2. Hypertension. 3. Gastroesophageal reflux. 4. Hyperlipidemia. 5. Coronary bypass surgery. 6. Cholecystectomy. 7. Small bowel resection. HISTORY OF PRESENT ILLNESS: Venita Jama is an 78-year-old male from [facility] who was admitted. Presented with a 2-week history of complicated cough, problematic secretions and prior to admission x-ray with pneumonia, unresponsive. He was admitted for treatment and medications. He was placed on triple antibiotic therapy throughout his early hospital stay. Blood culture returned Staph hominis on day #3, meds were adjusted downward to Levaquin. He was switched to oral medications on 07/15/2018. Cough improved, secretions cleared, appetite improved, and diabetic sugars improved with reduction/cessation of prednisone. At the time of discharge, he was comfortable. PHYSICAL EXAMINATION: VITAL SIGNS: 36.9 degrees Fahrenheit, pulse was 70, 115/73, 18, and 94%. GENERAL: Appears comfortable, cooperative, conversant. HEENT: Reveals normal conjunctivae, bright tympanic membranes, clear nasal discharge. Mouth and oropharynx clear. NECK: Benign. CHEST: Decreased breath sounds, right lower lobe, but clearer than on admission. HEART: Occasional ectopy. Soft murmur. ABDOMEN: Rotund. Previous surgical scars well healed. EXTREMITIES: Reveal venous stasis changes. PLAN: Discharge home, levofloxacin 7 days' duration. Hydration, fluids, observation of diabetes, followup with Dr. Pardo in 3 weeks' time. /[id number] ROCIO/MELECIO
== END 2018-07-16 11:15 | disposition home or self-care (01) | DRG 178 ==
LOC: FB.MS 15:08
PROVIDERS: ADMIT Family Medicine; ATTEND Family Medicine
DX: J15.29 Pneumonia due to other staphylococcus (principal); R78.81 Bacteremia; Z68.41 Body mass index [BMI] 40.0-44.9, adult; R09.02 Hypoxemia; B95.7 Other staphylococcus as the cause of diseases classified elsewhere; Z16.11 Resistance to penicillins; I12.9 Hypertensive chronic kidney disease with stage 1 through stage 4 chronic kidney disease, or unspecified chronic kidney disease; E11.22 Type 2 diabetes mellitus with diabetic chronic kidney disease; N18.3 Chronic kidney disease, stage 3 (moderate); Z79.4 Long term (current) use of insulin; I25.10 Atherosclerotic heart disease of native coronary artery without angina pectoris; E66.01 Morbid (severe) obesity due to excess calories; K21.9 Gastro-esophageal reflux disease without esophagitis; E78.5 Hyperlipidemia, unspecified; Z95.1 Presence of aortocoronary bypass graft; Z87.891 Personal history of nicotine dependence; Z90.49 Acquired absence of other specified parts of digestive tract; Z79.82 Long term (current) use of aspirin; Z79.899 Other long term (current) drug therapy
CPT/HCPCS: 36415; 71046; 71250; 80048; 80053; 82947; 82962; 83605; 83735; 83880; 84484; 85025; 86140; 87040; 87070; 87077; 87186; 87205; 93005; 94150; 94640; A9270-GY; J1650; J1815; J1815-GY; J1940; J1956; J2543; J2930; J3370; J7040; J7050; J7620-GY

== ENCOUNTER 2022-03-03 10:18 | Observation (INO) | payer MEDICARE, OTHER ==
[2022-03-03 11:01] LABS: ESTIMATED GFR 25 mL/min (>60)
[2022-03-03] MEDS ORDERED: Ondansetron 4 MG/2 ML SDV IVPUSH ONE (11:10)
[2022-03-03 11:26] LABS: CORONAVIRUS COVID-19 NAA NEGATIVE (NEGATIVE)
[2022-03-03] MEDS ORDERED: Furosemide 40 MG/4 ML VIAL IVPUSH ONE (12:01)
[2022-03-03] MEDS ORDERED: Metoprolol Tartrate 50 MG Tab PO ONE (12:05)
[2022-03-03] MEDS ORDERED: cefTRIAXone 1 GM Vial IVPUSH SCH (12:15)
[2022-03-03] MEDS ORDERED: Enoxaparin 30 MG/0.3 ML Syringe SUBCUT SCH (16:00)
[2022-03-03] MEDS ORDERED: Ondansetron 4 MG/2 ML SDV IVPUSH PRN (17:55)
[2022-03-03] MEDS ORDERED: 50% Dextrose in Water 50 ML Syringe IVPUSH PRN (17:59)
[2022-03-03] MEDS ORDERED: Glucagon,Human Recombinant 1 MG Vial IM PRN (17:59)
[2022-03-03] MEDS ORDERED: Sodium Chloride 0.9% 10 ML Syringe FLUSH PRN (18:11)
[2022-03-03] MEDS ORDERED: Insulin Lispro 100 Unit/ML 3 ML KwikPen SUBCUT ONE ×2 (18:42→22:18)
[2022-03-03] MEDS: Insulin Lispro 100 Unit/ML 3 ML KwikPen SUBCUT SCH (18:52)
[2022-03-03] MEDS ORDERED: INSULIN DETEMIR 100 UNIT/ML SUBCUT SCH (21:00)
[2022-03-03] MEDS: Apixaban 5 MG Tab PO SCH (21:47)
[2022-03-04 06:43] LABS: ESTIMATED GFR 24 mL/min (>60)
[2022-03-04] MEDS: Insulin Lispro 100 Unit/ML 3 ML KwikPen SUBCUT SCH (08:38)
[2022-03-04] MEDS: Apixaban 5 MG Tab PO SCH (08:42)
[2022-03-04] MEDS ORDERED: ASCORBIC ACID 1000 MG PO SCH (09:00)
[2022-03-04] MEDS ORDERED: Calcitriol 0.25 MCG Cap PO SCH (09:00)
[2022-03-04] MEDS ORDERED: FOLIC ACID 0.4 MG PO SCH (09:00)
[2022-03-04] MEDS ORDERED: Aspirin 81 MG Tab.EC**OWN MED PO SCH (09:00)
[2022-03-04] MEDS ORDERED: MULTIVITAMIN PO SCH (09:00)
[2022-03-04] MEDS ORDERED: ROSUVASTATIN 20 MG PO SCH (09:00)
[2022-03-04] MEDS ORDERED: CHOLECALCIFEROL 2000 UNIT PO SCH (09:00)
[2022-03-04] MEDS ORDERED: CALCITRIOL 0.25 MCG PO SCH (09:00)
[2022-03-04] MEDS ORDERED: LOSARTAN 100 MG PO SCH (09:00)
[2022-03-04] MEDS ORDERED: Furosemide 40 MG/4 ML VIAL IVPUSH SCH (09:00)
[2022-03-04] MEDS ORDERED: Docusate Sodium 100 MG Cap PO SCH ×2 (17:30)
== END 2022-03-04 11:57 ==
LOC: FB.ED 10:18 → FB.MS 15:04
PROVIDERS: ADMIT Student in an Organized Health Care Education/Training Program; ATTEND Family Medicine
DX: R79.89 Other specified abnormal findings of blood chemistry (principal); R09.89 Other specified symptoms and signs involving the circulatory and respiratory systems; R42 Dizziness and giddiness; I13.0 Hypertensive heart and chronic kidney disease with heart failure and stage 1 through stage 4 chronic kidney disease, or unspecified chronic kidney disease; I50.33 Acute on chronic diastolic (congestive) heart failure; N18.32 Chronic kidney disease, stage 3b; E11.22 Type 2 diabetes mellitus with diabetic chronic kidney disease; N17.9 Acute kidney failure, unspecified; I49.8 Other specified cardiac arrhythmias; I44.0 Atrioventricular block, first degree; R53.1 Weakness; R11.2 Nausea with vomiting, unspecified; I25.10 Atherosclerotic heart disease of native coronary artery without angina pectoris; E78.2 Mixed hyperlipidemia; Z95.1 Presence of aortocoronary bypass graft; Z79.899 Other long term (current) drug therapy; Z79.4 Long term (current) use of insulin; Z98.890 Other specified postprocedural states; Z90.49 Acquired absence of other specified parts of digestive tract; Z87.891 Personal history of nicotine dependence; Z20.822 Contact with and (suspected) exposure to COVID-19; W19.XXXA Unspecified fall, initial encounter
CPT/HCPCS: 0241U; 36415; 70450; 71046; 80048; 80053; 81001; 82947; 83605; 83880; 84484; 85025; 85379; 86140; 87040; 93005; 93010; 96372; 96374; 96375; 96376; 99223; 99238; 99283; 99285-25; A9270-GY; G0378; J0696; J1650; J1815; J1940; J2405; J3490